=== PATIENT | female | born 1985 | race Caucasian/White ===

== ENCOUNTER 2016-08-10 06:15 | Inpatient (IN) | payer MEDICAID, OTHER ==
[2016-08-10] MEDS ORDERED: LACTATED RINGERS 1,000 ML ONE (06:40)
[2016-08-10] MEDS ORDERED: SUBLIMAZE ONE (06:54)
[2016-08-10] MEDS ORDERED: SUBLIMAZE IV ONE (07:00)
[2016-08-10] MEDS ORDERED: LACTATED RINGERS 1,000 ML IV SCH ×2 (07:00→08:00)
--- NOTE | 2016-08-10 07:04 | History and Physical Report ---
History of Present Illness Date of examination: 08/10/16 Date of admission: 08/10/16 06:36 Chief complaint: pt presents with c/o of contractions. 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) Past Surgical History: no surgical history Family/Genetic History: diabetes Social history: no significant social history - Obstetrical History Expected Date of Delivery: 08/16/16 Actual Gestation: 39 Week(s) 1 Day(s) : 8 Number of Living Children: 7 Medications and Allergies Allergies Allergy/AdvReac Type Severity Reaction Status Date / Time No Known Allergies Allergy Unverified 07/31/13 16:00 Home Medications Medication Instructions Recorded Confirmed Last Taken Type Pnv with Ca,No.72/Iron/FA [Pnv 1 tab PO DAILY 08/01/13 07/26/15 07/24/15 20:00 History Plus Multivit Tab] Ferrous Sulfate [Feosol 325 MG tab] 325 mg PO BID #30 tablet 08/03/13 07/26/15 Unknown Rx Ibuprofen [Motrin 600 MG tab] 800 mg PO Q6HR PRN #30 tablet 08/03/13 07/26/15 Unknown Rx Vit-Fe Fumar-FA [ 1 each PO QDAY #30 tablet 08/03/13 07/26/15 Unknown Rx Vitamin] Ibuprofen [Motrin 600 MG tab] 600 mg PO Q6H #30 tablet 07/27/15 Unknown Rx oxyCODONE /ACETAMINOPHEN [Percocet 2 tab PO Q4H PRN #30 tablet 07/27/15 Unknown Rx 5/325 mg] Active Meds: Active Medications Influenza Virus Vaccine Quadrival (Fluarix Quad [id number](36 Mos+)) 60 mcg IM .ONCE ONE Stop: 08/10/16 12:01 Review of Systems All systems: negative - Vital Signs Vital signs: Vital Signs Pulse BP 85 95/54 08/10/16 06:36 08/10/16 06:36 Temp Pulse Resp BP Pulse Ox 97.5 F L 85 20 95/54 08/10/16 06:37 08/10/16 06:36 08/10/16 06:37 08/10/16 06:36 - Physical Exam Breasts: Positive: deferred Cardiovascular: Regular rate, Normal S1, Normal S2 Abdomen: Positive: normal appearance, soft, normal bowel sounds. Negative: distention, tenderness Vulva: both: normal Vagina: Positive: normal moisture. Negative: discharge Cervix: Negative: lesion, discharge Uterus: Positive: normal size, normal contour Adnexa: both: normal Anus/Rectum: Positive: normal perianal skin, heme negative. Negative: rectal mass, hemorrhoids Extremities: Deep Tendon Reflex Grade: Normal +2 - Obstetrical FHR: category 1 Uterine Contraction Monitor Mode: External Cervical Dilatation: 8 Cervical Effacement Percentage: 90 station: -1 Uterine Contraction Pattern: Regular Uterine Tone Measurement Phase: Resting Uterine Contraction Intensity: Moderate Results All other labs normal. Assessment and Plan iup at term, active labor, grandmultiparity Plan- admit, ivf, anticipate
[2016-08-10] MEDS ORDERED: BRETHINE SUB-Q PRN (07:06)
[2016-08-10] MEDS ORDERED: ZOFRAN IV PRN ×2 (07:06→10:01)
[2016-08-10] MEDS ORDERED: XYLOCAINE 2% INFILTRATI ONE (07:06)
[2016-08-10] MEDS ORDERED: BRETHINE IVP PRN (07:06)
[2016-08-10] MEDS ORDERED: ePHEDrine SULFATE IV PRN (07:06)
[2016-08-10] MEDS ORDERED: NARCAN 0.4 MG/1 ML IV PRN (07:06)
[2016-08-10 07:14] LABS: Hematocrit 35.5 % (30.3-42.9); Hemoglobin 11.9 gm/dl (10.1-14.3); Mean Corpuscular HGB Conc 34 % (30-34); Mean Corpuscular Hemoglobin 29 pg (28-32); Mean Corpuscular Volume 85 fl (79-97); Platelet Count 197 K/mm3 (140-440); Red Blood Count 4.18 M/mm3 (3.65-5.03); Red Cell Distribution Width 14.8 % (13.2-15.2); White Blood Count 9.8 K/mm3 (4.5-11.0)
[2016-08-10] MEDS ORDERED: PITOCin/NS 20 UNIT/1000ML DRIP 20 UNITS/1,000 ML BAG IV SCH (08:00)
[2016-08-10] MEDS ORDERED: PITOCin/NS 30 UNIT/500ML 30 UNITS/500 ML BAG IV SCH (08:00)
--- NOTE | 2016-08-10 08:35 | Procedure Note ---
OB Delivery Note - Delivery Date of Delivery: 08/10/16 Surgeon: JANIE LIRIANO Estimated blood loss: 100cc - Vaginal Delivery presentation: vertex Delivery position: OA Intrapartum events: none Delivery induction: none Delivery augmentation: rupture of membranes, pitocin Delivery monitor: external FHT, external uterine Route of delivery: Delivery placenta: spontaneous Delivery cord: 3 umbilical vessels, other (extremely short cord) Episiotomy: none Delivery laceration: none Anesthesia: intravenous - Infant A at 1 minute: 8 at 5 minutes: 9 Infant Gender: Male (wt 7-13, and mother tolerated the procedure well.)
[2016-08-10] MEDS ORDERED: BENADRYL PO PRN (10:01)
[2016-08-10] MEDS ORDERED: LANSINOH TP PRN (10:01)
[2016-08-10] MEDS ORDERED: TUCKS PAD TP PRN (10:01)
[2016-08-10] MEDS ORDERED: PHENERGAN PO PRN (10:01)
[2016-08-10] MEDS ORDERED: SODIUM CHLORIDE FLUSH SYRINGE 10 ML IV NR (10:01)
[2016-08-10] MEDS ORDERED: DERMOPLAST TP PRN (10:01)
[2016-08-10] MEDS ORDERED: DULCOLAX PR PRN (10:01)
[2016-08-10] MEDS ORDERED: PHENERGAN PR PRN (10:01)
[2016-08-10] MEDS ORDERED: TYLENOL PO PRN (10:01)
[2016-08-10] MEDS ORDERED: PERCOCET 5/325 PO PRN (10:01)
[2016-08-10] MEDS ORDERED: FLUARIX QUAD 2016-2017(36 MOS+) IM ONE (12:00)
[2016-08-10] MEDS: MOTRIN PO SCH ×2 (12:30→18:03)
[2016-08-10 21:02] LABS: Hematocrit 31.8 % (30.3-42.9); Hemoglobin 10.7 gm/dl (10.1-14.3)
[2016-08-10] MEDS ORDERED: MINERAL OIL PO PRN (22:00)
[2016-08-10] MEDS ORDERED: MILK OF MAGNESIA PO PRN (22:00)
[2016-08-11] MEDS: MOTRIN PO SCH ×2 (04:00→05:43)
[2016-08-11] MEDS ORDERED: BOOSTRIX IM ONE (06:00)
--- NOTE | 2016-08-11 08:23 | Progress Note ---
Assessment and Plan PPD 1 s/p . paln d/c home this pm if stable Subjective - Subjective Date of service: 08/11/16 Principal diagnosis: ppd 1 s/p Interval history: routine pp care. Patient reports: appetite normal, voiding normally, pain well controlled [place]: doing well Objective - Vital Signs Latest vital signs: Vital Signs Temp Pulse Pulse Resp BP BP Pulse Ox 08/11/16 05:43 18 08/11/16 00:20 98 F 80 22 109/72 08/10/16 16:01 98.1 F 79 18 99/61 08/10/16 11:50 98.1 F 68 18 100/57 08/10/16 09:28 97.4 F L 70 18 105/71 97 08/10/16 09:23 71 100 08/10/16 09:17 64 99 08/10/16 09:13 71 96/53 08/10/16 09:12 66 98 08/10/16 09:07 64 99 08/10/16 09:02 71 99 08/10/16 08:58 69 115/61 08/10/16 08:57 71 100 08/10/16 08:52 69 100 08/10/16 08:47 72 98 08/10/16 08:44 74 109/63 08/10/16 08:28 77 105/55 Intake and Output 08/10/16 08/11/16 08/11/16 22:59 06:59 14:59 Intake Total 750 400 Output Total 1000 Balance -250 400 Intake: IV 250 PITOCin/NS 20 UNIT/1000ML 250 DRIP 20 units In 1,000 ml @ 125 mls/hr IV DIRECT CHANDU Rx#:[id number] Oral 500 400 Output: Urine 1000 Void 1000 Other: Total, Intake Amount 500 400 Total, Output Amount 400 - Exam Breasts: Present: deferred Cardiovascular: Present: Regular rate, Normal S1, Normal S2 Lungs: Present: Clear to auscultation Abdomen: Present: normal appearance, soft Vulva: both: normal Uterus: Present: normal, firm Extremities: Present: normal Deep Tendon Reflex Grade: Normal +2 Incision: Present: normal, dry, intact
--- NOTE | 2016-08-11 08:25 | Discharge Summary ---
Providers - Providers Date of Admission: 08/10/16 06:36 Date of discharge: 08/11/16 Attending physician: JANIE LIRIANO Primary care physician: JANIE LIRIANO Hospitalization Reason for admission: active labor Delivery: Procedure details: of live male Episiotomy: none Laceration: none Other procedures: none complications: none Discharge diagnosis: IUP at term delivered [place] baby: male Hospital course: routine pp course Condition at discharge: Good Disposition: DISCHARGED TO HOME OR SELFCARE - Discharge Diagnoses (1) Status post normal vaginal delivery Status: Acute Plan - Discharge Medications Prescriptions: Ferrous Sulfate [Feosol 325 MG tab] 325 mg PO BID #60 tablet Ibuprofen [Motrin 800 MG tab] 800 mg PO Q8HR PRN #30 tablet PRN Reason: Pain oxyCODONE /ACETAMINOPHEN [Percocet 5/325] 1 tab PO Q6HR PRN #30 tablet PRN Reason: Pain - Provider Discharge Summary Activity: routine, no sex for 6 weeks, no heavy lifting 4 weeks, no strenuous exercise Diet: routine Instructions: routine Additional instructions: [] Smoking cessation referral if applicable(refer to patient education folder for contact #) [] Refer to [facility]'s [facility] Booklet Call your doctor immediately for: * Fever > 100.5 * Heavy vaginal bleeding ( >1 pad per hour) * Severe persistent headache * Shortness of breath * Reddened, hot, painful area to leg or breast * Drainage or odor from incision. * Keep incision clean and dry at all times and follow doctor's instructions regarding bathing/showering - Follow up plan Follow up: JANIE LIRIANO MD [Primary Care Provider] - 6 Weeks
[2016-08-11] MEDS ORDERED: FLUARIX QUAD 2016-2017(36 MOS+) IM ONE (13:00)
[2016-08-11 15:44] VITALS: BP 100/72
== END 2016-08-11 14:51 | disposition home or self-care (01) | DRG 775 ==
LOC: TRG 06:15 → LD 06:36 → OB 09:55
PROVIDERS: ADMIT Specialist; ATTEND Specialist
PROC: 10E0XZZ Delivery of Products of Conception, External Approach (ICD-10-PCS; principal; 2016-08-10)
PROC: 3E0S3CZ (ICD-10-PCS; 2016-08-10)
PROC: 00HU33Z Insertion of Infusion Device into Spinal Canal, Percutaneous Approach (ICD-10-PCS; 2016-08-10)
DX: O69.3XX0 Labor and delivery complicated by short cord, not applicable or unspecified (principal); O09.43 Supervision of pregnancy with grand multiparity, third trimester; Z3A.39 39 weeks gestation of pregnancy; Z37.0 Single live birth; Z23 Encounter for immunization; Z83.3 Family history of diabetes mellitus
CPT/HCPCS: 36415; 85014; 85018; 85027; 86850; 86900; 86901; 90471; 90686; 90715; 99211; G0008; G0463; J2590; J3010; J7120